=== PATIENT | male | born 1960 | race Caucasian/White ===

== ENCOUNTER 2025-04-02 19:35 | Emergency (ER) | payer MEDICAID ==
[~2025-04-02] VITALS: Ht 170.2 cm; Wt 70.0 kg
[2025-04-02 19:36] VITALS: BP 120/77; PULSE 65; RESP 18; TEMP 36.8; O2SAT 100
== END 2025-04-02 20:48 | disposition home or self-care (01) ==
LOC: ER 19:35
DX: R45.1 Restlessness and agitation (principal); Z59.00 Homelessness unspecified
CPT/HCPCS: 99283